=== PATIENT | male | born 2000 | race Caucasian/White ===

== ENCOUNTER 2019-10-18 11:02 | Emergency (ER) | payer MEDICAID ==
[~2019-10-18] VITALS: Ht 182.9 cm; Wt 84.0 kg
[2019-10-18 11:18] VITALS: BP 142/82
== END 2019-10-18 12:34 | disposition home or self-care (01) ==
LOC: ER 11:02
DX: S92.515A Nondisplaced fracture of proximal phalanx of left lesser toe(s), initial encounter for closed fracture (principal); W22.8XXA Striking against or struck by other objects, initial encounter; Y93.89 Activity, other specified; Y92.89 Other specified places as the place of occurrence of the external cause; Y99.8 Other external cause status
CPT/HCPCS: 73630; 99283